=== PATIENT | male | born 1955 | race Caucasian/White ===

== ENCOUNTER 2019-05-25 05:45 | Day surgery (SDC) | payer MEDICAID ==
[~2019-05-25] VITALS: Ht 172.7 cm; Wt 83.6 kg
[~2019-05-25 05:45] MED LIST: SODIUM CHLORIDE 0.9% 1,000 ML IV ONE
[2019-05-25] MEDS ORDERED: LIDOCAINE 2% 30 ML JELLY TP ONE (05:46)
[2019-05-25] MEDS ORDERED: ALBUTEROL SULFATE 2.5 MG/0.5 ML NEB SOLUTION NEB ONE (05:46)
[2019-05-25] MEDS ORDERED: BENZOCAINE 20% 50 MCG/SPRAY 57 GM TP ONE (05:46)
[2019-05-25] MEDS ORDERED: LIDOCAINE 4% 50 ML SOLUTION TP ONE (05:46)
[2019-05-25] MEDS ORDERED: SODIUM CHLORIDE 0.9% 1,000 ML IV ONE (06:30)
[2019-05-25] MEDS ORDERED: LISI-662 PO (07:09)
[2019-05-25] MEDS ORDERED: IPRA4AER IH (07:09)
[2019-05-25] MEDS ORDERED: ADV250 IH (07:09)
[2019-05-25] MEDS ORDERED: ALBU8HFA IH (07:09)
[2019-05-25] MEDS ORDERED: PRED10 PO (07:09)
[2019-05-25] MEDS ORDERED: MIDAZOLAM HCL 2 MG/2 ML VIAL ONE (07:57)
[2019-05-25] MEDS ORDERED: FentaNYL CITRATE-PF 100 MCG/2 ML VIAL ONE (07:57)
[2019-05-25] MEDS ORDERED: MethylPREDNISolone SOD SUCC 125 MG/2 ML VIAL IVP ONE (08:45)
[2019-05-25] MEDS ORDERED: MethylPREDNISolone SOD SUCC 125 MG/2 ML VIAL ONE (08:48)
[2019-05-25] MEDS ORDERED: PROMETHAZINE HCL/CODEINE 6.25-10MG/5ML SYRUP UDCUP PO ONE (09:15)
[2019-05-25] MEDS ORDERED: OXYGEN THERAPY IH SCH (20:00)
== END 2019-05-25 10:30 | disposition home or self-care (01) ==
LOC: EDSEX 05:45 → SURGERY 05:45
PROVIDERS: ATTEND Internal Medicine Critical Care Medicine
DX: R05 Cough (principal); R91.1 Solitary pulmonary nodule; J34.89 Other specified disorders of nose and nasal sinuses; J38.4 Edema of larynx; B37.0 Candidal stomatitis; I10 Essential (primary) hypertension; K21.9 Gastro-esophageal reflux disease without esophagitis
CPT/HCPCS: 31623; 31624; 71045; 87015; 87070; 87101; 87205; 87206; 87220; 88108; 88312; J2250; J2930; J3010; J7030